=== PATIENT | male | born 1945 | race Caucasian/White ===

== ENCOUNTER → 2017-01-23 | Outpatient (CLI) | payer MEDICARE ==
[~2017-01-23] MED LIST: AMLO5TAB2 PO; ATEN25TA PO; CYAN1TAB29 PO; DOCU-131 PO; FERR325T18 PO; HYDR-3237 PO; IBUP-1223 PO; LEVO1CAP3 PO; LISI40TA PO; PREG50CA PO; RIVA10TA PO; [UNRECOGNIZED DRUG - REMARK]
[2017-01-23 11:01] LABS: HEMATOCRIT 44.1 % (39.2-51.8); HEMOGLOBIN 14.9 g/dL (13.7-18.0); WHITE BLOOD COUNT 6.8 x10^3/uL (3.4-10)
[2017-01-23 11:08] LABS: BLOOD UREA NITROGEN 30 mg/dL (7-18)
[2017-01-23 11:12] LABS: ASPARTATE AMINO TRANSFERASE 27 U/L (15-37)
== END | disposition home or self-care (01) ==
LOC: STAR 09:11
PROVIDERS: ATTEND Orthopaedic Surgery
DX: Z01.818 Encounter for other preprocedural examination (principal); M19.011 Primary osteoarthritis, right shoulder
CPT/HCPCS: 36415; 80053; 81003; 85025; 87081; 87147

== ENCOUNTER 2019-04-07 13:03 | Emergency (ER) | payer MEDICARE ==
[~2019-04-07] VITALS: Ht 188 cm; Wt 84.3 kg
[~2019-04-07 13:03] MED LIST changes: +AMLO-150 PO; -AMLO5TAB2 PO; +ATOR10TA9 PO; +HYDR12.517 PO; -RIVA10TA PO; +RIVA10TA2 PO
[2019-04-07] MEDS ORDERED: ONDANSETRON 2MG/ML, 2ML ONE (14:16)
[2019-04-07] MEDS ORDERED: HYDROmorphone 1 MG/ML, 1ML INJ ONE (14:16)
[2019-04-07 14:19] LABS: ALANINE AMINOTRANSFERASE 20 U/L (12-78); ANION GAP 10 mmol/L (5-15); CALCIUM 9.3 mg/dL (8.5-10.1); CHLORIDE 107 mmol/L (98-107); CREATININE 1.63 mg/dL (0.7-1.3)
[2019-04-07 14:22] LABS: ALKALINE PHOSPHATASE 98 U/L (45-117); BILIRUBIN,TOTAL 1.1 mg/dL (0.2-1.0); TOTAL PROTEIN 8.1 g/dL (6.4-8.2)
[2019-04-07] MEDS: HYDROmorphone 2 MG/ML, 1ML IVPush PRN ×2 (14:29→15:07)
[2019-04-07] MEDS ORDERED: SODIUM CHLORIDE FLUSH 10ML SYR IVF ONE (14:30)
[2019-04-07] MEDS ORDERED: ONDANSETRON 2MG/ML, 2ML IVPush ONE (14:30)
[2019-04-07] MEDS ORDERED: SODIUM CHLORIDE 0.9% 1,000 ML IV ONE (14:32)
--- NOTE | 2019-04-07 14:34 | NUR ---
PT GIVEN PO FLUIDS & IVF INITIATED WHILE AWAITING URINE SAMPLE. PT TO CT.
--- NOTE | 2019-04-07 14:52 | NUR ---
PT RETURNED FROM CT, LAYING ON GURNEY AWAKE & MORE COMFORTABLE AFTER PAIN MED, RESPONDS APPROP TO STAFF, NAD, COMFORT MEASURES PROVIDED, AT BS, AWAITIING UA SAMPLE, CALL LIGHT WITHIN REACH.
[2019-04-07] MEDS ORDERED: SODIUM CHLORIDE 0.9% 1,000ML IVBOLUS ONE (15:00)
[2019-04-07 15:04] LABS: MEAN CORPUSCULAR HEMOGLOBIN 30.6 pg (27.5-34.5); MEAN CORPUSCULAR HGB CONC 33.9 g/dL (33.2-36.2); MEAN CORPUSCULAR VOLUME 90.1 fL (81-97); MEAN PLATELET VOLUME 8.7 fL (7.4-10.4); PLATELET COUNT 182 x10^3/uL (130-400); RED BLOOD COUNT 5.29 x10^6/uL (4.38-5.82); RED CELL DISTRIBUTION WIDTH 12.6 % (9.4-14.8)
[2019-04-07 15:33] LABS: MD YES
--- NOTE | 2019-04-07 16:01 | NUR ---
LAYING ON GURNEY AWAKE & MORE COMFORTABLE AFTER 2ND DOSE OF PAIN MED, RESPONDS APPROP TO STAFF, NAD, COMFORT MEASURES PROVIDED, AT BS, TTEMPTING TO PROVIDE UA SAMPLE, CALL LIGHT WITHIN REACH.
[2019-04-07 16:05] LABS: <PLATELET ESTIMATE> ADEQUATE; <PLT MORPHOLOGY> NORMAL PLT MORPH; <RBC MORPHOLOGY> NORMAL; BAND#(MANUAL) 0.36 x10^3/uL; BANDS%(MANUAL) 4 % (0-7); EOS#(MANUAL) 0.09 x10^3/uL (0.0-0.4); EOS% (MANUAL) 1 % (1-7); LYMPHS% (MANUAL) 10 % (22-44); MONOS#(MANUAL) 0.45 x10^3/uL (0.3-2.7); MONOS% (MANUAL) 5 % (2-9); SEGS% (MANUAL) 80 % (42-75)
[2019-04-07 17:05] VITALS: BP 136/69
--- NOTE | 2019-04-07 17:05 | NUR ---
PT LAYING ON GURNEY AWAKE & C/O BLADDER FULLNESS, OK TO STRAIGHT CATH PER ERP, RESPONDS APPROP TO STAFF, COMFORT MEASURES PROVIDED, AT BS, CALL LIGHT WITHIN REACH.
[2019-04-07 18:04] LABS: MICROSCOPIC INDICATED
[2019-04-07 18:06] LABS: CULTURE INDICATED? NO
--- NOTE | 2019-04-07 18:56 | NUR ---
Patient given discharge instructions and Rx, they have confirmed that they understand the instructions. Patient ambulatory with steady gait.
== END 2019-04-07 18:53 | disposition home or self-care (01) ==
LOC: ED 15:15
DX: N13.2 Hydronephrosis with renal and ureteral calculous obstruction (principal)
CPT/HCPCS: 36415; 74176; 80053; 81001; 85025; 96374; 96375; 96376; 99284; J1170; J2405; J7030; 96360; 96361

== ENCOUNTER 2020-01-24 18:46 | Emergency (ER) | payer MEDICARE ==
[~2020-01-24] VITALS: Ht 185.4 cm; Wt 86.2 kg
--- NOTE | 2020-01-24 19:00 | NUR ---
THIS IS A 74Y M THAT COMES IN TONIGHT FOR STROKE LIKE SYMPTOMS THAT BEGAN ABOUT 3-4HRS AGO AND HAVE SINCE RESOLVED. PT REPORTS SUDDEN R EYE VISION LOSS AND ONLY SEEING RED AND ORANGE OUT OF THE EYE. PT ALSO STS HE BECAME DIZZY SUDDENLY AND SAT DOWN FOR A FEW MINS AND SYMPTOMS RESOLVED. DENIES ANY FACIAL DROOP OR EXTREMITY WEAKNESS. AT THIS TIME PT A/OX4 AMBULATORY WITH STEADY GAIT, NO NEURO DEFICITS NOTED AT THIS TIME. PT DENIES HIGGINS AND VISION CHANGES. PT CONNECTED TO MONITORING VSS AT BEDSIDE
[2020-01-24 19:11] VITALS: BP 120/69
[2020-01-24] MEDS ORDERED: GALA8TAB8 PO (19:11)
[2020-01-24] MEDS ORDERED: LEVO1CAP3 PO (19:11)
[2020-01-24] MEDS ORDERED: ROSU5TAB PO (19:11)
[2020-01-24] MEDS ORDERED: HYDR12.517 PO (19:11)
--- NOTE | 2020-01-24 19:11 | NUR ---
ERP AT BEDSIDE FOR ASSESSMENT AT THIS TIME
--- NOTE | 2020-01-24 20:11 | NUR ---
Patient/Caregiver given discharge instructions and they have confirmed that they understand the instructions. Patient ambulatory with steady gait.
== END 2020-01-24 20:12 | disposition home or self-care (01) ==
LOC: ED 19:26
DX: G43.909 Migraine, unspecified, not intractable, without status migrainosus (principal); I45.10 Unspecified right bundle-branch block; I25.2 Old myocardial infarction; I10 Essential (primary) hypertension
CPT/HCPCS: 93005; 99283

== ENCOUNTER → 2020-09-01 | Outpatient (CLI) | payer MEDICARE ==
[~2020-09-01] MED LIST changes: +GALA8TAB8 PO; -LISI40TA PO; +LISI40TA9 PO; +ROSU5TAB PO
== END | disposition home or self-care (01) ==
LOC: CFH 14:15
PROVIDERS: ATTEND Psychiatry & Neurology Neurology
DX: G31.9 Degenerative disease of nervous system, unspecified (principal); J34.1 Cyst and mucocele of nose and nasal sinus; R43.1 Parosmia; G60.3 Idiopathic progressive neuropathy; R25.1 Tremor, unspecified
CPT/HCPCS: 70551